=== PATIENT | female | born 1975 | race Caucasian/White ===

== ENCOUNTER 2016-12-10 10:36 | Emergency (ER) | payer BC ==
[~2016-12-10] VITALS: Ht 160 cm; Wt 70.0 kg
[~2016-12-10 10:36] MED LIST: LORA1TAB PO
[2016-12-10 10:37] VITALS: Ht 160 cm; Wt 70.0 kg
[2016-12-10] MEDS ORDERED: KETOROLAC 30 MG INJ IM STA (11:00)
[2016-12-10] MEDS ORDERED: LORAZEPAM 1 MG TAB PO ONE (11:00)
[2016-12-10] MEDS ORDERED: NAPR-260 PO (11:34)
--- NOTE | 2016-12-10 19:23 | ERD ---
ER Documentation Chief Complaint Date/Time DATE: 12/10/16 TIME: 19:17 Chief Complaint left arm tingling & numbness, & swelling of fingers x3 days, denies cp HPI This patient is a 41-year-old male presenting to the emergency department for bilateral arm numbness, tingling, and pain. 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 Additionally she reports paraspinal pain of the cervical spine intermittently for the past 3 days. He has had very similar symptoms in the past when she has anxiety attacks and neck pain secondary to straining herself while at work. The patient is taking no medication for relief of symptoms. She denies fevers, chills, chest pain, dizziness, shortness of breath, or other symptoms currently. ROS All systems reviewed and are negative except as per history of present illness. Medications Home Meds Active Scripts Naproxen* (Naprosyn*) 500 Mg Tablet, 500 MG PO BID Y for PAIN AND/OR INFLAMMATION, #30 TAB Prov:JUSTIN BUSTAMANTE PA-C 12/10/16 Lorazepam* (Lorazepam*) 1 Mg Tablet, 1 MG PO Q8, #5 TAB Prov:CHAYA SANABRIA MD 10/18/15 Allergies Allergies: Coded Allergies: No Known Allergy (Unverified , 12/10/16) PMhx/Soc Medical and Surgical Hx: pt denies Medical Hx, pt denies Surgical Hx Hx Psychiatric Problems: Yes (Anxiety) Hx Alcohol Use: No Hx Substance Use: No Hx Tobacco Use: No Smoking Status: Never smoker Physical Exam Vitals Vital Signs Date Time Temp Pulse Resp B/P Pulse Ox O2 Delivery O2 Flow Rate FiO2 12/10/16 10:37 97.9 82 20 138/80 98 Physical Exam Const: Nontoxic, well-appearing female in no acute distress. Head: Atraumatic Eyes: Normal Conjunctiva ENT: Normal External Ears, Nose and Mouth. Neck: Full range of motion..~ No meningismus. Resp: Clear to auscultation bilaterally Cardio: Regular rate and rhythm, no murmurs Skin: No petechiae or rashes Back: No midline or flank tenderness Ext: The patient has generalized tenderness to palpation of her upper extremities bilaterally. There is no edema, ecchymosis, deformity, open fracture, or other abnormalities noted on the upper extremities. 2+ radial pulses to bilateral upper extremities. Neur: Awake and alert Psych: Normal Mood and Affect Results 24 hrs Current Medications Medications (Trade) Dose Ordered Sig/Joe Route PRN Reason Start Time Stop Time Status Last Admin Dose Admin Lorazepam (Ativan) 1 mg ONCE ONCE PO 12/10/16 11:00 12/10/16 11:01 DC 12/10/16 11:12 Ketorolac Tromethamine (Toradol) 30 mg ONCE STAT IM 12/10/16 11:00 12/10/16 11:01 DC 12/10/16 11:11 Procedures/MDM 41-year-old female presents to the emergency department with complaints of bilateral upper arm pain. Additionally the patient has had some feelings of anxiety, however she adamantly denies any suicidal or homicidal ideation. The patient's symptoms are likely secondary to cervical radiculopathy and anxiety. I have low suspicion for coronary ischemia, pulmonary embolism, aortic dissection, or other emergent conditions. The patient was given IM Toradol and p.o. Ativan in the department and she was feeling significantly improved prior to discharge. The patient was stable for outpatient management with a prescription for naproxen. She agreed with the discharge plan a diagnosis. Strict ER return precautions were discussed. Close follow-up with the primary care physician was advised. Suspicion for life-threatening illness at time of discharge. EKG: Interpreted by ED physician, Dr. Jeromy Bo Rate/Rhythm: Normal sinus rhythm with a rate of 72 bpm. QRS, ST, T-waves: No changes consistent w/ acute ischemia Impression: No evidence of ischemia or arrhythmia Departure Diagnosis: Primary Impression: Cervical radiculopathy Condition: Fair Patient Instructions: Your Body's Response to Anxiety, Radiculopathy, Cervical Referrals: [facility] Usted se field hecho un examen mdico de control que le indica que no est en cecilia condicin que requiera tratamiento urgente en el Departamento de Emergencia. Un estudio ms profundo y el tratamiento de gonzalez condicin pueden esperar sin ningn riesgo hasta que usted sea atendida/o en el consultorio de gonzalez mdico o cecilia cl mesha. Es responsabilidad suya arreglar cecilia alessandra para el seguimiento del karen. MANEJO DE CONDICIONES NO URGENTES EN EL FUTURO 1) Si usted tiene un mdico de atencin primaria: Usted debera llamar a gonzalez mdico de atencin primaria antes de venir al departamento de emergencia. Despus de las horas de consultorio, gonzalez doctor o gonzalez asociado/a est disponible por telfono. El mdico o enfermero de jason en el servicio telefnico puede asesorarle por cristina medio para atender el problema, o karen contrario se puede programar cecilia alessandra. 2) Si usted no tiene un mdico de atencin primaria: Llame al mdico o clnica de referencia que aparece abajo antonieta las horas de consultorio para hacer cecilia alessandra para que le vean. CLINICAS: [facility] [phone] [address] [facility] [phone] [facility] [phone] [facility] [phone] [facility] [phone] [phone] [address] Additional Instructions: No mas mejor en 2-3 lanza, regresar. Mas peor en 24 horas, regresear rapidamente. Ir a doctor primario in 5-7 lanza. Usar instrucciones cuando jena medicamento. JUSTIN BUSTAMANTE PA-C Dec 10, 2016 19:23
== END 2016-12-10 11:46 | disposition home or self-care (01) ==
LOC: FTE 10:36
DX: M54.12 Radiculopathy, cervical region (principal); M79.602 Pain in left arm
CPT/HCPCS: 93005; 96372; 99284; J1885